=== PATIENT | male | born 2005 | race Two or more races ===

== ENCOUNTER 2024-04-20 16:20 | Emergency (ER) | payer MEDICAID ==
[2024-04-20] MEDS: Lidocaine 1% with EPINEPHrine 1:100,000 10 ML MDV INJECT ONE (16:59)
== END 2024-04-20 18:05 | disposition home or self-care (01) ==
LOC: CC.ED 16:20
DX: J86.9 Pyothorax without fistula (principal)
CPT/HCPCS: 10060; 87070; 87077; 87186; 87205; 99283-25; 99284; J3490